=== PATIENT | female | born 1975 | race Caucasian/White ===

== ENCOUNTER 2016-05-26 13:24 | Emergency (ER) | payer MEDICARE, MEDICAID ==
[2016-05-26 13:51] LABS: Hematocrit 41.9 % (37.0-47.0); Hemoglobin 13.5 gm/dL (12.5-16.0); Mean Cell Volume 91.9 fl (78-100); Mean Corpuscular Hemoglobin 29.6 pg (27-31); Mean Corpuscular Hgb Conc 32.2 g/dl (32-36); Mean Platelet Volume 10.8 fl (6.0-9.5); Neutrophil % 63.3 % (42-75.0); Platelet Count 246 K/mm3 (150-450); Red Blood Count 4.56 M/mm3 (4.2-5.4); Red Cell Distribution Width 13.8 % (11.5-14.0); White Blood Count 9.4 K/mm3 (4.0-10.5)
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
[2016-05-26 14:02] LABS: Prothrombin Time (Patient) 10.4 Seconds (9.4-11.4)
[2016-05-26 14:08] LABS: ALT 42 U/L (19-67); AST 15 U/L (0-48); Albumin * 3.6 gm/dl (3.4-5.0); Alkaline Phosphatase * 90 U/L (50-170); Anion Gap 14.4 mmol/L (6.8-13.8); BUN/Creatinine Ratio 12.8 (9.0-21.6); Bilirubin, Total 0.2 mg/dL (0.0-1.1); Blood Urea Nitrogen 10 mg/dL (3-23); Ca. Corrected For Albumin 8.7 mg/dL (8.4-10.2); Calcium * 8.7 mg/dL (7.9-10.9); Carbon Dioxide 23.3 mmol/L (24-32.6); Chloride 107 mmol/L (97-106); Glucose * 106 mg/dL (70-110); Partial Thrombolplastin Time 24.5 Seconds (24-32); Potassium 3.7 mmol/L (3.4-4.6); Sodium 141 mmol/L (132-142); Troponin I Less than 0.017 ng/ml (0.00-0.10)
--- OUTSIDE RECORDS SUMMARY | 2016-05-26 14:18 | XMS REPORT | Continuity of Care Document ---
:1975 Author Organization [employer] [place] [address] Care Team Providers Name Role Phone Shantal Yates Primary Care Provider [phone] Source Comments This disclosure is being made pursuant to the Tangler program and maynot contain all information available regarding this patient.[employer] Active Allergies and Adverse Reactions Allergen Noted Date Severity Reactions Comments Erythromycin 01/28/2016 Other (See Comments) Current Medications Be aware that medications may not be up to date as of this document. Alwaysverify current medications with the patient. Prescription Sig. Disp. Refills Start Date End Date Status omeprazole (PRILOSEC) Take 1 04/20/2015 Active 20 MG capsule capsule by mouth 2 (two) times daily. topiramate (TOPAMAX) 50 Take 50 mg 05/28/2015 Active MG tablet by mouth 2 (two) times daily. gabapentin (NEURONTIN) Take 900 mg 5 01/22/2016 Active 300 MG capsule by mouth nightly. metoprolol tartrate Take 50 mg Active (LOPRESSOR) 50 MG by mouth 2 tablet (two) times daily. rOPINIRole (REQUIP) 1 Take 2 mg by Active MG tablet mouth 3 (three) times daily. diclofenac sodium Take 1 60 tablet 11 05/12/2016 Active (VOLTAREN) 75 MG EC tablet by tablet mouth 2 (two) times daily. hydroxychloroquine Take 1 60 tablet 11 05/13/2016 Active (PLAQUENIL) 200 MG tablet by tablet mouth 2 (two) times daily. sulfaSALAzine Take 1 60 tablet 11 02/05/2016 Discontinued (AZULFIDINE) 500 MG tablet by 7 tablet mouth 2 (two) times daily. Active Problems Problem Noted Date PHILIPPE positive 01/28/2016 Most Recent Encounters Date Type Specialty Providers Description 05/13/2016 Refill Rheumatology Jessi Amato RN 05/12/2016 Office Visit Rheumatology Rafita Peter MD Pain, joint, multiple sites (Primary Dx) Social History Tobacco Use Types Packs/Day Years Used Date Never Smoker Smokeless Tobacco: Never Used Last Filed Vital Signs Vital Sign Reading Time Taken Blood Pressure 139/87 05/12/2016 3:08 PM CDT Pulse 89 05/12/2016 3:08 PM CDT Temperature - - Respiratory Rate - - Height - - Weight 132.45 kg (292 lb) 05/12/2016 3:08 PM CDT Body Mass Index - - Oxygen Saturation - - Plan of Care Date Type Specialty Providers Description 08/11/2016 Appointment Neurology Dario Pavon MD [address] [place] [address] [address] [place] [address] [phone] (Fax) Health Maintenance Due Date Last Done Comments Tetanus/Pertussis (1 - Tdap) 1995 Pap Smear 1997 Influenza Immunization (#1) 2015 Results from Last 3 Months Sedimentation rate (05/12/2016 3:40 PM) Component Value Range Sedimentation Rate 31(H) 0-20 mm/hr Narrative Testing performed at [facility], [address] [place] [address].Benefits Advisor Osvaldo Pimentel MD High sensitivity CRP (05/12/2016 3:40 PM) Component Value Range CRP 9.35Comment: mg/L Cardiac Risk Assessment(mg/L) <0.6Normal 0.7 - 1.1 Relative Risk 1.7 1.2 - 2.1 Relative Risk 2.6 > 2.2 Relative Risk 2.9 > 4.94The high sensitivity CRP result may be confounded by acute inflammatory disease. Clinical correlation essential.Inflammatory process: 0.07 - 4.94 mg/L Narrative Testing performed at [facility], [address] [place] [address].Benefits Advisor Osvaldo Pimentel MD Urinalysis with microscopic (05/12/2016 3:40 PM) Component Value Range *MARCEL TYPE Clean Catch Color, Fluid DK YELLOW(A) Yellow Clarity, Fluid Clear Clear Specific [place] 1.030 1.001-1.035 pH 5.0 5.0-8.0 Leukocyte Esterase, UA Negative Negative Nitrite Negative Negative Protein Negative Negative Glucose, Urinalysis Negative Negative Ketones, UA Negative Negative Urobilinogen Negative Negative Bilirubin Urine Negative Negative Blood Negative Negative WBC 3-6(A) 0-2 RBC 3-5(A) 0-2 Epithelial Cells, Fluid 1+ <2+ Bacteria 2+(A) None Specimen Cln Catch Narrative Testing performed at [facility], [address] [place] [address].Benefits Advisor Osvaldo Pimentel MD
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
[2016-05-26 14:53] VITALS: BP 125/70
== END 2016-05-26 15:59 | disposition home or self-care (01) ==
LOC: ER 13:24
DX: R07.89 Other chest pain (principal); I48.91 Unspecified atrial fibrillation; Z85.3 Personal history of malignant neoplasm of breast